=== PATIENT | female | born 1965 | race Caucasian/White ===

== ENCOUNTER 2016-10-03 06:00 | Day surgery (SDC) | payer BC ==
[2016-10-03] MEDS ORDERED: Lactated Ringers 1,000 ML IV SCH (06:30)
[2016-10-03 07:12] LABS: ANION GAP 7.5 MEQ/L (5-15); BLOOD UREA NITROGEN 6 mg/dL (9-20); CHLORIDE 108 mEq/L (98-107); Carbon Dioxide 29.9 mEq/L (21-32); Glucose 93 MG/DL (70-110); Potassium 4.5 mEq/L (3.5-5.1); SODIUM 141 mEq/L (136-145)
[2016-10-03] MEDS ORDERED: SUBLIMAZE 100 MCG/2 ML IV ONE (08:00)
[2016-10-03] MEDS ORDERED: Versed 2 MG/2 ML Injection IV ONE (08:00)
[2016-10-03] MEDS ORDERED: DIPRIVAN 200 MG/20 ML IV ONE ×2 (08:00)
[2016-10-03 08:59] VITALS: PULSE 60
--- NOTE | 2016-10-03 09:11 | OP ---
SURGERY DATE/TIME: 10/03/2016 0747 PREOPERATIVE DIAGNOSIS: Screening colonoscopy. POSTOPERATIVE DIAGNOSIS: Normal colon. PROCEDURE: Colonoscopy. SURGEON: Juan Dailey M.D. ANESTHESIA: MAC. ESTIMATED BLOOD LOSS: None. SPECIMENS: None. DESCRIPTION OF PROCEDURE: After informed written consent was obtained, the patient was taken to the endoscopy suite. She underwent monitored anesthesia and digital rectal exam showed normal sphincter tone and no internal lesions. The scope was inserted in the rectum and sequentially the entire colonic mucosa was traversed. The level of cecum was reached and verified with direct visualization of ileocecal valve. Upon withdrawal careful mucosal inspection revealed no obvious mucosal abnormalities. Prior to withdrawal retroflexion was within normal limits. The scope was removed and the patient was transferred to the recovery room in excellent condition.
[2016-10-03 09:30] VITALS: BP 117/77; O2SAT 100
== END 2016-10-03 09:25 | disposition home or self-care (01) ==
LOC: SDC 06:00
PROVIDERS: ATTEND Family Medicine
PROC: 0DJD8ZZ Inspection of Lower Intestinal Tract, Via Natural or Artificial Opening Endoscopic (ICD-10-PCS; principal; 2016-10-03)
DX: Z12.11 Encounter for screening for malignant neoplasm of colon (principal)
CPT/HCPCS: 00810; 36415; 80048; J2250; J2704; J3010

== ENCOUNTER 2021-01-27 12:24 | Emergency (ER) | payer BC, OTHER ==
[2021-01-27 12:44] VITALS: O2SAT 100
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
[2021-01-27 14:16] VITALS: BP 139/86; PULSE 76
== END 2021-01-27 14:16 | disposition home or self-care (01) ==
LOC: ED 12:24
DX: S16.1XXA Strain of muscle, fascia and tendon at neck level, initial encounter (principal); V43.52XA Car driver injured in collision with other type car in traffic accident, initial encounter; R51.9 Headache, unspecified
CPT/HCPCS: 70450; 72125; 99285

== ENCOUNTER 2021-02-17 12:05 | Emergency (ER) | payer BC, OTHER ==
[2021-02-17 12:15] VITALS: BP 160/85
[2021-02-17] MEDS ORDERED: solu-MEDROL 125 MG, Sterile H2O 10 ml 2 ML IM ONE ×2 (12:23)
[2021-02-17] MEDS ORDERED: Pepcid 20 MG PO ONE (12:23)
[2021-02-17] MEDS ORDERED: BENADRYL 12.5 MG/5 ML PO ONE (12:23)
[2021-02-17] MEDS ORDERED: DUONEB 0.5-3 MG/3 ml Neb IH ONE ×2 (12:23→12:40)
[2021-02-17] MEDS ORDERED: Pepcid 20 MG ONE (12:28)
[2021-02-17] MEDS ORDERED: solu-MEDROL ONE (12:28)
[2021-02-17] MEDS ORDERED: BENADRYL 12.5 MG/5 ML ONE (12:28)
[2021-02-17] MEDS ORDERED: Sterile H2O 10 ml IJ ONE (12:28)
[2021-02-17 12:57] VITALS: PULSE 75; O2SAT 97
--- NOTE | 2021-02-17 13:16 | ERPHSYRPT ---
- History of Present Illness Time Seen by Provider: 02/17/21 12:07 Source: patient Exam Limitations: no limitations Patient Subjective Stated Complaint: Allergic reaction Triage Nursing Assessment: Patient ambulated back to ED and transferred self to bed. Patient A+O X3. Patient's skin pink, warm and dry. Patient states she started last night with her throat feeling like it was closing and swelling. Patient states she feels shaky and weak. Patient states she has allergies to perservatives and artificial ingredients so unknown what she ate. Patient complains of chest pain / Physician History: 55 years old female with history of multiple allergies to artificial flavors and other ingredients presented in the ER with chief complaint of throat closing sensation waking her up from sleep this morning, took children's Benadryl unknown amount and after that she is feeling little better but still have some scratchiness in the throat with shakiness all over. Patient does have history of anxiety and takes Xanax as needed. Denies any difficulty breathing or swallowing. No tongue swelling. Reports minimal wheezing at times. Denies any chest pain or pressure. No obvious triggering allergen. Timing/Duration: today, constant, improved Severity: moderate Associated Symptoms: denies symptoms Allergies/Adverse Reactions: Penicillins Allergy (Severe, Verified 02/17/21 12:06) morphine Allergy (Verified 02/17/21 12:06) potassium sorbate Allergy (Verified 02/17/21 12:06) sulfamethoxazole [From Bactrim] Allergy (Verified 02/17/21 12:06) trimethoprim [From Bactrim] Allergy (Verified 02/17/21 12:06) Home Medications: Amiloride HCl [Midamor] 5 mg PO DAILY 10/02/16 [History] Dicyclomine HCl [Bentyl] 10 mg PO QID 10/03/16 [History] Hx Tetanus, Diphtheria Vaccination/Date Given: Yes (hysterecomy) Hx Influenza Vaccination/Date Given: Yes Hx Pneumococcal Vaccination/Date Given: No Immunizations Up to Date: Yes Travel Risk - International Travel Have you traveled outside of the country in past 3 weeks: No - Coronavirus Screening Are you exhibiting any of the following symptoms?: No Close contact with a COVID-19 positive Pt in past 14-21 Days: No - Vaccine Status Have you recieved a Covid-19 vaccination: No - Review of Systems Constitutional: No Symptoms Eyes: No Symptoms Ears, Nose, & Throat: Nose Congestion, Throat Swelling Respiratory: Wheezing Cardiac: No Symptoms Abdominal/Gastrointestinal: No Symptoms Genitourinary Symptoms: No Symptoms Musculoskeletal: No Symptoms Skin: No Symptoms Neurological: No Symptoms Psychological: Anxiety Endocrine: No Symptoms Hematologic/Lymphatic: No Symptoms Immunological/Allergic: No Symptoms - Past Medical History Pertinent Past Medical History: Yes Neurological History: No Pertinent History ENT History: No Pertinent History Cardiac History: Other Respiratory History: No Pertinent History Endocrine Medical History: No Pertinent History Musculoskeletal History: Arthritis GI Medical History: No Pertinent History History: Other Psycho-Social History: No Pertinent History Female Reproductive Disorders: No Pertinent History Other Medical History: RAPID HEART BEAT, "kidneys filter too much potassium" - Past Surgical History Past Surgical History: Yes Neuro Surgical History: No Pertinent History Cardiac: No Pertinent History Respiratory: No Pertinent History Gastrointestinal: No Pertinent History Genitourinary: No Pertinent History Musculoskeletal: No Pertinent History Female Surgical History: Hysterectomy - Social History Smoking Status: Never smoker Exposure to second hand smoke: No Drug Use: none Patient Lives Alone: No - Female History Hx Now: No - Nursing Vital Signs Nursing Vital Signs: Initial Vital Signs Temperature 97.2 F 02/17/21 12:07 Pulse Rate 99 H 02/17/21 12:07 Respiratory Rate 15 02/17/21 12:07 Blood Pressure 160/85 02/17/21 12:07 O2 Sat by Pulse Oximetry 100 02/17/21 12:07 Pain Scale Pain Intensity 5 - Physical Exam General Appearance: no apparent distress, alert, anxiety Eye Exam: PERRL/EOMI, eyes nml inspection Ears, Nose, Throat Exam: pharyngeal erythema (With some postnasal drip) Neck Exam: normal inspection, non-tender, supple, full range of motion Respiratory Exam: normal breath sounds, lungs clear Cardiovascular Exam: regular rate/rhythm, normal heart sounds Gastrointestinal/Abdomen Exam: soft, normal bowel sounds Back Exam: normal inspection Extremity Exam: normal inspection, normal range of motion Neurologic Exam: alert, oriented x 3, cooperative, No normal mood/affect (Anxious) Skin Exam: normal color SpO2 Interpretation: normal SpO2: 97 O2 Delivery: Room Air - Course EKG Interpreted by Me: RATE (75), Sinus Rhythm, NORMAL AXIS, NORMAL INTERVALS, Non-specific ST Changes (Nonspecific ST changes) Ordered Tests: Active Orders 24 hr Category Date Time Status Respiratory Nebulizer STAT RT 02/17/21 12:48 Completed Respiratory Therapy Assessment DAILY RT 02/17/21 12:48 Active Medication Summary Discontinued Medications Generic Name Dose Route Start Last Admin Trade Name Nasreen PRN Reason Stop Dose Admin Albuterol/Ipratropium 3 ml 02/17/21 12:23 02/17/21 12:44 Duoneb 0.5-3 Mg/3 Ml Neb IH 02/17/21 12:24 3 ml STAT ONE Administration Albuterol/Ipratropium Confirm 02/17/21 12:40 Duoneb 0.5-3 Mg/3 Ml Neb Administered 02/17/21 12:41 Dose 3 ml IH .STK-MED ONE Methylprednisolone Sodium 0 mg 02/17/21 12:23 02/17/21 12:31 Succinate 125 mg/ Sterile IM 02/17/21 12:24 125 mg Water 2 ml STAT ONE Administration Diphenhydramine HCl 25 mg 02/17/21 12:23 02/17/21 12:31 Benadryl 12.5 Mg/5 Ml PO 02/17/21 12:24 25 mg STAT ONE Administration Diphenhydramine HCl Confirm 02/17/21 12:28 Benadryl 12.5 Mg/5 Ml Administered 02/17/21 12:29 Dose 5 mg .ROUTE .STK-MED ONE Famotidine 40 mg 02/17/21 12:23 02/17/21 12:31 Pepcid 20 Mg PO 02/17/21 12:24 40 mg STAT ONE Administration Famotidine Confirm 02/17/21 12:28 Pepcid 20 Mg Administered 02/17/21 12:29 Dose 40 mg .ROUTE .STK-MED ONE Methylprednisolone Sodium Succinate Confirm 02/17/21 12:28 Solu-Medrol Administered 02/17/21 12:29 Dose 125 mg .ROUTE .STK-MED ONE Sterile Water Confirm 02/17/21 12:28 Sterile H2o 10 Ml Administered 02/17/21 12:29 Dose 10 ml IJ .STK-MED ONE - Progress Progress: improved Progress Note: 02/17/21 13:14 She is given Solu-Medrol, Benadryl, Pepcid and albuterol neb treatment, on reevaluation she is feeling much better. Does not have any difficulty breathing. No signs suggesting angioedema. I would continue with above meds to go home and will give her EpiPen to take as needed. Recommended outpatient follow-up. Counseled pt/family regarding: diagnosis, need for follow-up - Departure Departure Disposition: Home Clinical Impression: Allergic reaction Qualifiers: Encounter type: initial encounter Qualified Code(s): T78.40XA - Allergy, unspecified, initial encounter Condition: Stable Critical Care Time: No Referrals: ANOOP MORRIS NP [Primary Care Provider] - (Call for appointment early next week) Instructions: Adverse Drug Reactions, Adult (DC) Additional Instructions: Avoid any potential known allergens. Use EpiPen as needed. Continue with current medications. Follow-up with primary care for reevaluation. Return to ER if have difficulty breathing/swallowing/throat closing/choking sensation etc. Prescriptions: Diphenhydramine HCl 25 mg [Benadryl 25 mg Capsule] 25 mg PO Q4H PRN PRN #20 cap PRN Reason: Allergies Prednisone 20 mg [Deltasone 20 mg] 60 mg PO DAILY 5 Days #15 tablet Epinephrine [Epipen] 0.3 mg IM DIRECTIONS UNKNOWN 1 Days #0.3 ml Famotidine 20 mg [Pepcid 20 MG] 20 mg PO BID #14 tablet Albuterol 8 gm Mdi Hfa [Ventolin Hfa MDI] 8 gm IH Q4H #1 inh
== END 2021-02-17 13:24 | disposition home or self-care (01) ==
LOC: ED 12:05
DX: T78.40XA Allergy, unspecified, initial encounter (principal)
CPT/HCPCS: 94640; 96372; 99283; J2930; A9270-GY

== ENCOUNTER 2021-09-10 20:04 | Inpatient (IN) | payer BC ==
[2021-09-10] MEDS ORDERED: Sodium Chloride 0.9% 1000 ML 1,000 ML IV STA (20:17)
--- NOTE | 2021-09-10 20:17 | ERPHSYRPT ---
- History of Present Illness Time Seen by Provider: 09/10/21 20:12 Source: patient, family Exam Limitations: no limitations Physician History: This is a 55 y/o white female patient of ADALGISA Larsen who presents from home with complaint of sudden onset of generalized weakness and difficultly thinking. pt denies new meds, denies cp, denies sob and denies vomiting. pt states she is having diarrhea. she has a h/o arthritis and anxiety. she also has a h/o problems with low potassium. she has not had fevers, or cough. Timing/Duration: today, hour(s) (one hour ago) Severity: moderate Associated Symptoms: weakness, No nausea, No vomiting, No shortness of breath, No cough, No chest pain Allergies/Adverse Reactions: Penicillins Allergy (Severe, Verified 09/10/21 20:23) morphine Allergy (Verified 09/10/21 20:23) potassium sorbate Allergy (Verified 09/10/21 20:23) sulfamethoxazole [From Bactrim] Allergy (Verified 09/10/21 20:23) trimethoprim [From Bactrim] Allergy (Verified 09/10/21 20:23) Home Medications: Dicyclomine HCl [Bentyl] 10 mg PO TID 10/03/16 [History] ALPRAZolam 1 MG [Xanax 1 mg] 1 mg PO TIDPRN 09/10/21 [History] Propranolol HCl [Inderal Xl] 80 mg PO DAILY 09/10/21 [History] Hx Tetanus, Diphtheria Vaccination/Date Given: Yes (hysterecomy) Hx Influenza Vaccination/Date Given: Yes Hx Pneumococcal Vaccination/Date Given: No Travel Risk - International Travel Have you traveled outside of the country in past 3 weeks: No - Coronavirus Screening Are you exhibiting any of the following symptoms?: No Close contact with a COVID-19 positive Pt in past 14-21 Days: No - Vaccine Status Have you recieved a Covid-19 vaccination: No - Review of Systems Constitutional: Weakness Eyes: No Symptoms Ears, Nose, & Throat: No Symptoms Respiratory: No Symptoms Cardiac: No Symptoms Abdominal/Gastrointestinal: Diarrhea, No Abdominal Pain, No Nausea, No Vomiting, No Constipation Genitourinary Symptoms: No Symptoms Musculoskeletal: No Symptoms Skin: No Symptoms Neurological: No Symptoms Psychological: No Symptoms Endocrine: No Symptoms Hematologic/Lymphatic: No Symptoms Immunological/Allergic: No Symptoms All Other Systems: Reviewed and Negative - Past Medical History Pertinent Past Medical History: Yes Neurological History: No Pertinent History ENT History: No Pertinent History Cardiac History: Other Respiratory History: No Pertinent History Endocrine Medical History: No Pertinent History Musculoskeletal History: Arthritis GI Medical History: No Pertinent History History: Other Psycho-Social History: No Pertinent History Female Reproductive Disorders: No Pertinent History Other Medical History: RAPID HEART BEAT, "kidneys filter too much potassium" - Past Surgical History Past Surgical History: Yes Neuro Surgical History: No Pertinent History Cardiac: No Pertinent History Respiratory: No Pertinent History Gastrointestinal: No Pertinent History Genitourinary: No Pertinent History Musculoskeletal: No Pertinent History Female Surgical History: Hysterectomy - Social History Smoking Status: Never smoker Exposure to second hand smoke: No Drug Use: none Patient Lives Alone: No - Nursing Vital Signs Nursing Vital Signs: Initial Vital Signs Temperature 97.1 F 09/10/21 20:10 Pulse Rate 58 L 09/10/21 20:10 Respiratory Rate 16 09/10/21 20:10 Blood Pressure 158/68 09/10/21 20:10 O2 Sat by Pulse Oximetry 100 09/10/21 20:10 Pain Scale Pain Intensity 0 - Physical Exam General Appearance: no apparent distress, alert, anxiety Eye Exam: PERRL/EOMI, eyes nml inspection Ears, Nose, Throat Exam: normal ENT inspection, moist mucous membranes Neck Exam: normal inspection, non-tender, supple, full range of motion Respiratory Exam: normal breath sounds, lungs clear, airway intact, No chest tenderness, No respiratory distress Cardiovascular Exam: regular rate/rhythm, normal heart sounds, normal peripheral pulses Gastrointestinal/Abdomen Exam: soft, normal bowel sounds, No tenderness Pelvic Exam: not done Rectal Exam: not done Back Exam: normal inspection, normal range of motion, No CVA tenderness, No vertebral tenderness Extremity Exam: normal inspection, normal range of motion, pelvis stable Neurologic Exam: alert, oriented x 3, cooperative, information security officer II-XII nml as tested, no rmal mood/affect, nml cerebellar function, nml station & gait, sensation nml Skin Exam: normal color, warm, dry Lymphatic Exam: No adenopathy SpO2 Interpretation: normal O2 Delivery: Room Air - Course Nursing assessment & vital signs reviewed: Yes EKG Interpreted by Me: RATE (58), Sinus Rhythm, NORMAL AXIS, NORMAL INTERVALS (prolonged pr interval. no acute ischemia. no change from ekg dated 02/17/21), NORMAL QRS, NORMAL ST-T, Other Ordered Tests: Active Orders 24 hr Category Date Time Status EKG-ER Only STAT Care 09/10/21 20:17 Active IV Insertion STAT Care 09/10/21 20:17 Active NPO (ED) STAT Care 09/10/21 20:17 Active POCT Glucose Check STAT Care 09/10/21 20:17 Active Pulse Oximetry (ED) STAT Care 09/10/21 20:17 Active HEAD WITHOUT CONTRAST [CT] Stat Exams 09/10/21 20:17 Taken CBC W DIFF Stat Lab 09/10/21 20:38 Completed CMP Stat Lab 09/10/21 20:38 Completed Lactic Acid Stat Lab 09/10/21 20:20 Completed MAGNESIUM Stat Lab 09/10/21 20:38 Completed NT PRO BNP Stat Lab 09/10/21 20:38 Completed POCT GLUCOSE Stat Lab 09/10/21 20:28 Completed POTASSIUM, URINE RANDOM Stat Lab 09/10/21 21:34 Completed Sodium, Urine Stat Lab 09/10/21 21:34 Completed T4 (Thyroxine) Stat Lab 09/10/21 20:38 Completed TROPONIN Q3H Lab 09/10/21 20:38 Completed TROPONIN Q3H Lab 09/10/21 23:30 Ordered TROPONIN Q3H Lab 09/11/21 02:30 Ordered TROPONIN Q3H Lab 09/11/21 05:30 Ordered TROPONIN Q3H Lab 09/11/21 08:30 Ordered TSH [TSH, 3RD Generation] Stat Lab 09/10/21 20:38 Completed Transfer Order Routine Transfer 09/10/21 Ordered Medication Summary Discontinued Medications Generic Name Dose Route Start Last Admin Trade Name Freq PRN Reason Stop Dose Admin Sodium Chloride 1,000 mls @ 999 mls/hr 09/10/21 20:17 09/10/21 20:27 Sodium Chloride 0.9% 1000 Ml IV 09/10/21 21:17 999 mls/hr .Q1H1M STA Administration Sodium Chloride Confirm 09/10/21 20:23 Sodium Chloride 0.9% 1000 Ml Administered 09/10/21 20:24 Dose 1,000 mls @ ud .ROUTE .STK-MED ONE Potassium Chloride 20 meq 09/10/21 21:26 09/10/21 21:30 Potassium Chloride 10 Meq Tablet PO 09/10/21 21:27 20 meq STAT ONE Administration Potassium Chloride Confirm 09/10/21 21:29 Potassium Chloride 10 Meq Tablet Administered 09/10/21 21:30 Dose 20 meq PO .STK-MED ONE Lab/Rad Data: Laboratory Result Diagrams 09/10/21 20:38 09/10/21 20:38 Laboratory Results 09/10/21 09/10/21 09/10/21 Range/Units 21:34 21:34 21:21 WBC (4.0-10.5) K/mm3 RBC (4.1-5.4) M/mm3 Hgb (12.0-16.0) gm/dl Hct (35-47) % MCV (78-100) fl MCH (26-32) pg MCHC (32-36) g/dl RDW (11.5-14.0) % Plt Count (150-450) K/mm3 MPV (7.5-11.0) fl Gran % (36.0-66.0) % Eos # (Auto) (0-0.5) Absolute Lymphs (auto) (1.0-4.6) Absolute Monos (auto) (0.0-1.3) Lymphocytes % (24.0-44.0) % Monocytes % (0.0-12.0) % Eosinophils % (0.00-5.0) % Basophils % (0.0-0.4) % Absolute Granulocytes (1.4-6.9) Basophils # (0-0.4) Sodium (137-145) mmol/L Potassium (3.5-5.1) mmol/L Chloride (98-107) mmol/L Carbon Dioxide (22-30) mmol/L Anion Gap (5-15) MEQ/L BUN (7-17) mg/dL Creatinine (0.52-1.04) mg/dL Estimated GFR ML/MIN Glucose (74-106) mg/dL POC Glucometer (74 to 106) mg/dL Lactic Acid (0.4-2.0) Calcium (8.4-10.2) mg/dL Magnesium (1.6-2.3) mg/dL Total Bilirubin (0.2-1.3) mg/dL AST (14-36) U/L ALT (0-35) U/L Alkaline Phosphatase (38-126) U/L Troponin I (0.000-0.034) ng/mL NT-Pro-B Natriuret Pep (0-900) pg/mL Serum Total Protein (6.3-8.2) g/dL Albumin (3.5-5.0) g/dL Thyroxine (T4) (5.53-10.96) ug/dL TSH 3rd Generation (0.47-4.68) mIU/L Urinalys Dipstick Clnc MAIN LAB Urine Color YELLOW (YELLOW) Urine Appearance CLEAR (CLEAR) Urine pH 6.0 (5-6) Ur Specific [place] 1.020 (1.005-1.025) POC Urine Protein Conf NEGATIVE (Negative) Urine Ketones NEGATIVE (NEGATIVE) Urine Nitrite NEGATIVE (NEGATIVE) Urine Bilirubin NEGATIVE (NEGATIVE) Urine Urobilinogen 0.2 (0-1) mg/dL Urine Leukocytes TRACE (NEGATIVE) Urine WBC (Auto) 3-5 (0-5) /HPF Urine RBC (Auto) NONE (0-2) /HPF U Epithel Cells (Auto) RARE (FEW) /HPF Urine Bacteria (Auto) NONE (NEGATIVE) /HPF Urine RBC NEGATIVE (0-5) Soham/ul Urine Mucus (Auto) MODERATE (NEGATIVE) /HPF Ur Culture Indicated? NO Urine Sodium 27 L (30-90) mmol/L Urine Potassium 41.4 mmol/L Urine Glucose NEGATIVE (NEGATIVE) mg/dL 09/10/21 09/10/21 09/10/21 Range/Units 20:38 20:38 20:38 WBC (4.0-10.5) K/mm3 RBC (4.1-5.4) M/mm3 Hgb (12.0-16.0) gm/dl Hct (35-47) % MCV (78-100) fl MCH (26-32) pg MCHC (32-36) g/dl RDW (11.5-14.0) % Plt Count (150-450) K/mm3 MPV (7.5-11.0) fl Gran % (36.0-66.0) % Eos # (Auto) (0-0.5) Absolute Lymphs (auto) (1.0-4.6) Absolute Monos (auto) (0.0-1.3) Lymphocytes % (24.0-44.0) % Monocytes % (0.0-12.0) % Eosinophils % (0.00-5.0) % Basophils % (0.0-0.4) % Absolute Granulocytes (1.4-6.9) Basophils # (0-0.4) Sodium (137-145) mmol/L Potassium (3.5-5.1) mmol/L Chloride (98-107) mmol/L Carbon Dioxide (22-30) mmol/L Anion Gap (5-15) MEQ/L BUN (7-17) mg/dL Creatinine (0.52-1.04) mg/dL Estimated GFR ML/MIN Glucose (74-106) mg/dL POC Glucometer (74 to 106) mg/dL Lactic Acid (0.4-2.0) Calcium (8.4-10.2) mg/dL Magnesium (1.6-2.3) mg/dL Total Bilirubin (0.2-1.3) mg/dL AST (14-36) U/L ALT (0-35) U/L Alkaline Phosphatase (38-126) U/L Troponin I < 0.012 (0.000-0.034) ng/mL NT-Pro-B Natriuret Pep (0-900) pg/mL Serum Total Protein (6.3-8.2) g/dL Albumin (3.5-5.0) g/dL Thyroxine (T4) 6.20 (5.53-10.96) ug/dL TSH 3rd Generation 1.860 (0.47-4.68) mIU/L Urinalys Dipstick Clnc Urine Color (YELLOW) Urine Appearance (CLEAR) Urine pH (5-6) Ur Specific [place] (1.005-1.025) POC Urine Protein Conf (Negative) Urine Ketones (NEGATIVE) Urine Nitrite (NEGATIVE) Urine Bilirubin (NEGATIVE) Urine Urobilinogen (0-1) mg/dL Urine Leukocytes (NEGATIVE) Urine WBC (Auto) (0-5) /HPF Urine RBC (Auto) (0-2) /HPF U Epithel Cells (Auto) (FEW) /HPF Urine Bacteria (Auto) (NEGATIVE) /HPF Urine RBC (0-5) Soham/ul Urine Mucus (Auto) (NEGATIVE) /HPF Ur Culture Indicated? Urine Sodium (30-90) mmol/L Urine Potassium mmol/L Urine Glucose (NEGATIVE) mg/dL 09/10/21 09/10/21 09/10/21 Range/Units 20:38 20:38 20:28 WBC 9.6 (4.0-10.5) K/mm3 RBC 3.61 L (4.1-5.4) M/mm3 Hgb 11.6 L (12.0-16.0) gm/dl Hct 33.6 L (35-47) % MCV 93.1 (78-100) fl MCH 32.1 H (26-32) pg MCHC 34.5 (32-36) g/dl RDW 11.5 (11.5-14.0) % Plt Count 261 (150-450) K/mm3 MPV 9.2 (7.5-11.0) fl Gran % 52.1 (36.0-66.0) % Eos # (Auto) 0.07 (0-0.5) Absolute Lymphs (auto) 3.50 (1.0-4.6) Absolute Monos (auto) 0.98 (0.0-1.3) Lymphocytes % 36.6 (24.0-44.0) % Monocytes % 10.3 (0.0-12.0) % Eosinophils % 0.7 (0.00-5.0) % Basophils % 0.3 (0.0-0.4) % Absolute Granulocytes 4.97 (1.4-6.9) Basophils # 0.03 (0-0.4) Sodium 122 L (137-145) mmol/L Potassium 3.1 L (3.5-5.1) mmol/L Chloride 88 L (98-107) mmol/L Carbon Dioxide 24 (22-30) mmol/L Anion Gap 12.5 (5-15) MEQ/L BUN 9 (7-17) mg/dL Creatinine 0.64 (0.52-1.04) mg/dL Estimated GFR > 60.0 ML/MIN Glucose 152 H (74-106) mg/dL POC Glucometer 178 H (74 to 106) mg/dL Lactic Acid (0.4-2.0) Calcium 8.6 (8.4-10.2) mg/dL Magnesium 1.8 (1.6-2.3) mg/dL Total Bilirubin 0.90 (0.2-1.3) mg/dL AST 53 H (14-36) U/L ALT 49 H (0-35) U/L Alkaline Phosphatase 53 (38-126) U/L Troponin I (0.000-0.034) ng/mL NT-Pro-B Natriuret Pep 115 (0-900) pg/mL Serum Total Protein 6.1 L (6.3-8.2) g/dL Albumin 3.9 (3.5-5.0) g/dL Thyroxine (T4) (5.53-10.96) ug/dL TSH 3rd Generation (0.47-4.68) mIU/L Urinalys Dipstick Clnc Urine Color (YELLOW) Urine Appearance (CLEAR) Urine pH (5-6) Ur Specific [place] (1.005-1.025) POC Urine Protein Conf (Negative) Urine Ketones (NEGATIVE) Urine Nitrite (NEGATIVE) Urine Bilirubin (NEGATIVE) Urine Urobilinogen (0-1) mg/dL Urine Leukocytes (NEGATIVE) Urine WBC (Auto) (0-5) /HPF Urine RBC (Auto) (0-2) /HPF U Epithel Cells (Auto) (FEW) /HPF Urine Bacteria (Auto) (NEGATIVE) /HPF Urine RBC (0-5) Soham/ul Urine Mucus (Auto) (NEGATIVE) /HPF Ur Culture Indicated? Urine Sodium (30-90) mmol/L Urine Potassium mmol/L Urine Glucose (NEGATIVE) mg/dL 09/10/21 Range/Units 20:20 WBC (4.0-10.5) K/mm3 RBC (4.1-5.4) M/mm3 Hgb (12.0-16.0) gm/dl Hct (35-47) % MCV (78-100) fl MCH (26-32) pg MCHC (32-36) g/dl RDW (11.5-14.0) % Plt Count (150-450) K/mm3 MPV (7.5-11.0) fl Gran % (36.0-66.0) % Eos # (Auto) (0-0.5) Absolute Lymphs (auto) (1.0-4.6) Absolute Monos (auto) (0.0-1.3) Lymphocytes % (24.0-44.0) % Monocytes % (0.0-12.0) % Eosinophils % (0.00-5.0) % Basophils % (0.0-0.4) % Absolute Granulocytes (1.4-6.9) Basophils # (0-0.4) Sodium (137-145) mmol/L Potassium (3.5-5.1) mmol/L Chloride (98-107) mmol/L Carbon Dioxide (22-30) mmol/L Anion Gap (5-15) MEQ/L BUN (7-17) mg/dL Creatinine (0.52-1.04) mg/dL Estimated GFR ML/MIN Glucose (74-106) mg/dL POC Glucometer (74 to 106) mg/dL Lactic Acid 0.9 (0.4-2.0) Calcium (8.4-10.2) mg/dL Magnesium (1.6-2.3) mg/dL Total Bilirubin (0.2-1.3) mg/dL AST (14-36) U/L ALT (0-35) U/L Alkaline Phosphatase (38-126) U/L Troponin I (0.000-0.034) ng/mL NT-Pro-B Natriuret Pep (0-900) pg/mL Serum Total Protein (6.3-8.2) g/dL Albumin (3.5-5.0) g/dL Thyroxine (T4) (5.53-10.96) ug/dL TSH 3rd Generation (0.47-4.68) mIU/L Urinalys Dipstick Clnc Urine Color (YELLOW) Urine Appearance (CLEAR) Urine pH (5-6) Ur Specific [place] (1.005-1.025) POC Urine Protein Conf (Negative) Urine Ketones (NEGATIVE) Urine Nitrite (NEGATIVE) Urine Bilirubin (NEGATIVE) Urine Urobilinogen (0-1) mg/dL Urine Leukocytes (NEGATIVE) Urine WBC (Auto) (0-5) /HPF Urine RBC (Auto) (0-2) /HPF U Epithel Cells (Auto) (FEW) /HPF Urine Bacteria (Auto) (NEGATIVE) /HPF Urine RBC (0-5) Soham/ul Urine Mucus (Auto) (NEGATIVE) /HPF Ur Culture Indicated? Urine Sodium (30-90) mmol/L Urine Potassium mmol/L Urine Glucose (NEGATIVE) mg/dL - Progress Progress: improved Progress Note: 09/10/21 20:34 additional hx provided by pt. she states she has been off her propranolol for a few days and restarted this am. in addition, she felt something stuck in her throat this afternoon after working in the yard. unable to have relief from the sensation and felt anxious so she took a xanax. both medications make her tired. 09/10/21 21:54 medical decision making: pt has both hyponatremia and hypokalemia. pt will be admitted and given iv ns for now and repeat labs in am. spoke with dr. richardson. only 0.9% ns for now. she will follow up on am labs. Discussed with : Fr[place] Counseled pt/family regarding: lab results, diagnosis, need for follow-up, rad results - Departure Departure Disposition: In-patient Admission Clinical Impression: Hyponatremia, Hypokalemia, Weakness, Confusion Condition: Stable Critical Care Time: No Referrals: ANOOP LARSEN, [employer] [Primary Care Provider] - Follow up/PCP as directed
[2021-09-10] MEDS ORDERED: Sodium Chloride 0.9% 1000 ML 1,000 ML ONE (20:23)
[2021-09-10 20:46] LABS: Absolute Neutrophil Ct (ANC) 4.97 (1.4-6.9); Basophil (Absolute #) 0.03 (0-0.4); Eosinophil % 0.7 % (0.00-5.0); Eosinophil (Absolute #) 0.07 (0-0.5); Hematocrit 33.6 % (35-47); Hemoglobin 11.6 gm/dl (12.0-16.0); Lymphocytes % 36.6 % (24.0-44.0); Mean Cell Volume 93.1 fl (78-100); Mean Corpuscular Hemoglobin 32.1 pg (26-32); Mean Corpuscular Hgb Concent. 34.5 g/dl (32-36); Mean Platelet Volume 9.2 fl (7.5-11.0); Monocyte (Absolute #) 0.98 (0.0-1.3); Monocytes % 10.3 % (0.0-12.0); Neutrophil % 52.1 % (36.0-66.0); Platelet Count 261 K/mm3 (150-450); Red Blood Count 3.61 M/mm3 (4.1-5.4); Red Cell Distribution Width 11.5 % (11.5-14.0); White Blood Count 9.6 K/mm3 (4.0-10.5)
[2021-09-10 21:01] LABS: ALBUMIN 3.9 g/dL (3.5-5.0); ALKALINE PHOSPHATASE 53 U/L (38-126); ANION GAP 12.5 MEQ/L (5-15); BLOOD UREA NITROGEN 9 mg/dL (7-17); CHLORIDE 88 mmol/L (98-107); Calcium 8.6 mg/dL (8.4-10.2); Carbon Dioxide 24 mmol/L (22-30); Creatinine 1 0.64 mg/dL (0.52-1.04); EST GLOMERULAR FILTRATION RATE > 60.0 ML/MIN; Glucose 152 mg/dL (74-106); MAGNESIUM 1.8 mg/dL (1.6-2.3); NT PRO BNP 115 pg/mL (0-900); Potassium 3.1 mmol/L (3.5-5.1); SGOT/AST 53 U/L (14-36); SGPT/ALT 49 U/L (0-35); SODIUM 122 mmol/L (137-145); Total Protein 6.1 g/dL (6.3-8.2)
[2021-09-10] MEDS ORDERED: Klor Con 10 MEQ PO ONE ×2 (21:26→21:29)
[2021-09-10 21:43] LABS: Epithelial Cells RARE /HPF (FEW); Mucus MODERATE /HPF (NEGATIVE)
[2021-09-10 21:45] LABS: Appearance CLEAR (CLEAR); Bilirubin NEGATIVE (NEGATIVE); Dipstick done @ ? MAIN LAB; Glucose NEGATIVE (NEGATIVE); Ketones NEGATIVE (NEGATIVE); Nitrite NEGATIVE (NEGATIVE); Protein,Urine Dip NEGATIVE (Negative); RBC NEGATIVE Ery/ul (0-5); Urobilinogen 0.2 mg/dL (0-1)
[2021-09-10 21:46] LABS: Urine Cultured Indicated? NO
[2021-09-10 22:42] LABS: INFLUENZA A NEGATIVE (NEGATIVE); INFLUENZA B NEGATIVE (NEGATIVE); RESPIRATORY SYNCTIAL VIRUS NEGATIVE (Negative); SARS-CoV-2 Xpert Express NEGATIVE (NEGATIVE)
[2021-09-10] MEDS ORDERED: ZOFRAN ODT 4 MG PO ONE (23:32)
[2021-09-10] MEDS ORDERED: TYLENOL SUSPENSION 160 MG/5 ML PO ONE (23:33)
[2021-09-10] MEDS ORDERED: TYLENOL SUSPENSION 160 MG/5 ML ONE (23:39)
[2021-09-10] MEDS ORDERED: ZOFRAN ODT 4 MG ONE (23:39)
[2021-09-10] MEDS ORDERED: Zofran 4 MG/2 ML VIAL IV PRN (23:51)
[2021-09-11] MEDS: Sodium Chloride 0.9% 1000 ML 1,000 ML IV SCH ×2 (00:33→08:23)
[2021-09-11] MEDS ORDERED: xanAX 0.5 MG ONE (02:23)
[2021-09-11] MEDS: xanAX 0.5 MG PO SCH ×2 (02:25→21:45)
[2021-09-11 03:13] LABS: Absolute Neutrophil Ct (ANC) 4.14 (1.4-6.9); Basophil (Absolute #) 0.02 (0-0.4); Eosinophil % 0.3 % (0.00-5.0); Eosinophil (Absolute #) 0.02 (0-0.5); Hematocrit 32.1 % (35-47); Hemoglobin 11.2 gm/dl (12.0-16.0); Mean Cell Volume 92.5 fl (78-100); Mean Corpuscular Hemoglobin 32.3 pg (26-32); Mean Corpuscular Hgb Concent. 34.9 g/dl (32-36); Mean Platelet Volume 9.1 fl (7.5-11.0); Monocyte (Absolute #) 0.65 (0.0-1.3); Neutrophil % 63.4 % (36.0-66.0); Platelet Count 220 K/mm3 (150-450); Red Blood Count 3.47 M/mm3 (4.1-5.4); Red Cell Distribution Width 11.5 % (11.5-14.0); White Blood Count 6.5 K/mm3 (4.0-10.5)
[2021-09-11 03:45] LABS: ALBUMIN 3.6 g/dL (3.5-5.0); ALKALINE PHOSPHATASE 51 U/L (38-126); BLOOD UREA NITROGEN 7 mg/dL (7-17); CHLORIDE 92 mmol/L (98-107); Calcium 7.9 mg/dL (8.4-10.2); Carbon Dioxide 24 mmol/L (22-30); Creatinine 1 0.51 mg/dL (0.52-1.04); EST GLOMERULAR FILTRATION RATE > 60.0 ML/MIN; Glucose 116 mg/dL (74-106); Potassium 4.3 mmol/L (3.5-5.1); SGOT/AST 49 U/L (14-36); SGPT/ALT 51 U/L (0-35); SODIUM 122 mmol/L (137-145); Total Protein 5.7 g/dL (6.3-8.2)
--- NOTE | 2021-09-11 08:41 | XRAY ---
Indication: Confusion. Multiple contiguous axial images obtained through the head without contrast. Comparison: August 25, 2021. Normal appearing brain parenchyma, ventricles, and bony calvarium. Visualized paranasal sinuses and mastoid air cells are clear. Impression: Continued normal CT head without contrast exam. Comment: Preliminary interpretation made by [facility]. No critical discrepancy.
--- NOTE | 2021-09-11 09:07 | PCM.HP ---
History of Present Illness - Chief Complaint Chief Complaint: electrolyte imbalance History of Present Illness: is a 55 year old female who presented to the ER complaining of weakness and fatigue, found to have low potassium and low sodium, she denies taking a thiazide, has a history of low potassium and sees Dr Painter. - Review of Systems Constitutional: No Fever, No Chills Respiratory: No Cough, No Short Of Breath Cardiac: No Chest Pain, No Edema, No Syncope Abdominal/Gastrointestinal: No Abdominal Pain, No Nausea, No Vomiting, No Diarrhea Genitourinary Symptoms: No Dysuria All Other Systems: Reviewed and Negative Medications & Allergies Home Medications: Home Medication List Dicyclomine HCl [Bentyl] 10 mg PO TID 10/03/16 [History Confirmed 09/10/21] Diphenhydramine HCl 25 mg [Benadryl 25 mg Capsule] 25 mg PO Q4H PRN PRN #20 cap 02/17/21 [Rx Confirmed 09/10/21] EPINEPHrine [Epipen] 0.3 mg IM DIRECTIONS UNKNOWN 1 Days #0.3 ml 02/17/21 [Rx Confirmed 09/10/21] Famotidine 20 mg [Pepcid 20 MG] 20 mg PO BID #14 tablet 02/17/21 [Rx Confirmed 09/10/21] ALPRAZolam 1 MG [Xanax 1 mg] 1 mg PO TIDPRN 09/10/21 [History Confirmed 09/10/21] Propranolol HCl [Inderal Xl] 80 mg PO DAILY 09/10/21 [History Confirmed 09/10/21] Allergies/Adverse Reactions: Allergies Allergy/AdvReac Type Severity Reaction Status Date / Time Penicillins Allergy Severe Verified 09/10/21 20:23 morphine Allergy Verified 09/10/21 20:23 potassium sorbate Allergy Verified 09/10/21 20:23 sulfamethoxazole Allergy Verified 09/10/21 20:23 [From Bactrim] trimethoprim [From Bactrim] Allergy Verified 09/10/21 20:23 - Past Medical History Past Medical History: Yes Neurological History: Migraines ENT History: No Pertinent History Cardiac History: Other Respiratory History: No Pertinent History Endocrine Medical History: No Pertinent History Musculoskelatal History: Arthritis GI Medical History: No Pertinent History History: Other Pyscho-Social History: Anxiety Reproductive Disorders: No Pertinent History Comment: RAPID HEART BEAT, "kidneys filter too much potassium". nodule on thyroid - Female History Are you now?: No - Past Surgical History Past Surgical History: Yes Neuro Surgical History: No Pertinent History Cardiac History: No Pertinent History Respiratory Surgery: No Pertinent History GI Surgical History: No Pertinent History Genitourinary Surgical Hx: No Pertinent History Musculskeletal Surgical Hx: No Pertinent History Female Surgical History: Hysterectomy - Social History Smoking Status: Never smoker Exposure to second hand smoke: No Alcohol: None Drug Use: none - Physical Exam Vital Signs: Vital Signs - 24 hr Temp Pulse Resp BP Pulse Ox 09/11/21 08:00 97.5 F 58 L 19 102/53 98 09/11/21 04:15 20 09/11/21 03:40 98.4 F 61 20 126/69 98 09/11/21 00:10 98.2 F 59 L 18 126/75 97 09/10/21 23:51 97 09/10/21 22:04 54 L 13 127/81 100 09/10/21 21:15 60 16 148/80 100 09/10/21 20:36 97 09/10/21 20:10 97.1 F 58 L 16 158/68 100 General Appearance: no apparent distress, alert Neurologic Exam: alert, oriented x 3, cooperative, normal mood/affect, nml cerebellar function, nml station & gait, sensation nml, No motor deficits Respiratory Exam: normal breath sounds, lungs clear, No respiratory distress Cardiovascular Exam: regular rate/rhythm, normal heart sounds, normal peripheral pulses Gastrointestinal/Abdomen Exam: soft, normal bowel sounds, No tenderness, No mass Extremity Exam: normal inspection, normal range of motion, pelvis stable Skin Exam: normal color, warm, dry, No rash Results - Labs Lab/Micro Results: Lab Results-Last 24 Hours 09/10/21 09/10/21 09/10/21 Range/Units 20:20 20:28 20:38 WBC 9.6 (4.0-10.5) K/mm3 RBC 3.61 L (4.1-5.4) M/mm3 Hgb 11.6 L (12.0-16.0) gm/dl Hct 33.6 L (35-47) % MCV 93.1 (78-100) fl MCH 32.1 H (26-32) pg MCHC 34.5 (32-36) g/dl RDW 11.5 (11.5-14.0) % Plt Count 261 (150-450) K/mm3 MPV 9.2 (7.5-11.0) fl Gran % 52.1 (36.0-66.0) % Eos # (Auto) 0.07 (0-0.5) Absolute Lymphs (auto) 3.50 (1.0-4.6) Absolute Monos (auto) 0.98 (0.0-1.3) Lymphocytes % 36.6 (24.0-44.0) % Monocytes % 10.3 (0.0-12.0) % Eosinophils % 0.7 (0.00-5.0) % Basophils % 0.3 (0.0-0.4) % Absolute Granulocytes 4.97 (1.4-6.9) Basophils # 0.03 (0-0.4) Sodium (137-145) mmol/L Potassium (3.5-5.1) mmol/L Chloride (98-107) mmol/L Carbon Dioxide (22-30) mmol/L Anion Gap (5-15) MEQ/L BUN (7-17) mg/dL Creatinine (0.52-1.04) mg/dL Estimated GFR ML/MIN Glucose (74-106) mg/dL POC Glucometer 178 H (74 to 106) mg/dL Lactic Acid 0.9 (0.4-2.0) Calcium (8.4-10.2) mg/dL Magnesium (1.6-2.3) mg/dL Total Bilirubin (0.2-1.3) mg/dL AST (14-36) U/L ALT (0-35) U/L Alkaline Phosphatase (38-126) U/L Troponin I (0.000-0.034) ng/mL NT-Pro-B Natriuret Pep (0-900) pg/mL Serum Total Protein (6.3-8.2) g/dL Albumin (3.5-5.0) g/dL Thyroxine (T4) (5.53-10.96) ug/dL TSH 3rd Generation (0.47-4.68) mIU/L Urinalys Dipstick Clnc Urine Color (YELLOW) Urine Appearance (CLEAR) Urine pH (5-6) Ur Specific [place] (1.005-1.025) POC Urine Protein Conf (Negative) Urine Ketones (NEGATIVE) Urine Nitrite (NEGATIVE) Urine Bilirubin (NEGATIVE) Urine Urobilinogen (0-1) mg/dL Urine Leukocytes (NEGATIVE) Urine WBC (Auto) (0-5) /HPF Urine RBC (Auto) (0-2) /HPF U Epithel Cells (Auto) (FEW) /HPF Urine Bacteria (Auto) (NEGATIVE) /HPF Urine RBC (0-5) Soham/ul Urine Mucus (Auto) (NEGATIVE) /HPF Ur Culture Indicated? Urine Sodium (30-90) mmol/L Urine Potassium mmol/L Urine Glucose (NEGATIVE) mg/dL Influenza Type A Ag (NEGATIVE) Influenza Type B Ag (NEGATIVE) RSV (PCR) (Negative) SARS-CoV-2 (PCR) (NEGATIVE) 09/10/21 09/10/21 09/10/21 Range/Units 20:38 20:38 20:38 WBC (4.0-10.5) K/mm3 RBC (4.1-5.4) M/mm3 Hgb (12.0-16.0) gm/dl Hct (35-47) % MCV (78-100) fl MCH (26-32) pg MCHC (32-36) g/dl RDW (11.5-14.0) % Plt Count (150-450) K/mm3 MPV (7.5-11.0) fl Gran % (36.0-66.0) % Eos # (Auto) (0-0.5) Absolute Lymphs (auto) (1.0-4.6) Absolute Monos (auto) (0.0-1.3) Lymphocytes % (24.0-44.0) % Monocytes % (0.0-12.0) % Eosinophils % (0.00-5.0) % Basophils % (0.0-0.4) % Absolute Granulocytes (1.4-6.9) Basophils # (0-0.4) Sodium 122 L (137-145) mmol/L Potassium 3.1 L (3.5-5.1) mmol/L Chloride 88 L (98-107) mmol/L Carbon Dioxide 24 (22-30) mmol/L Anion Gap 12.5 (5-15) MEQ/L BUN 9 (7-17) mg/dL Creatinine 0.64 (0.52-1.04) mg/dL Estimated GFR > 60.0 ML/MIN Glucose 152 H (74-106) mg/dL POC Glucometer (74 to 106) mg/dL Lactic Acid (0.4-2.0) Calcium 8.6 (8.4-10.2) mg/dL Magnesium 1.8 (1.6-2.3) mg/dL Total Bilirubin 0.90 (0.2-1.3) mg/dL AST 53 H (14-36) U/L ALT 49 H (0-35) U/L Alkaline Phosphatase 53 (38-126) U/L Troponin I < 0.012 (0.000-0.034) ng/mL NT-Pro-B Natriuret Pep 115 (0-900) pg/mL Serum Total Protein 6.1 L (6.3-8.2) g/dL Albumin 3.9 (3.5-5.0) g/dL Thyroxine (T4) (5.53-10.96) ug/dL TSH 3rd Generation 1.860 (0.47-4.68) mIU/L Urinalys Dipstick Clnc Urine Color (YELLOW) Urine Appearance (CLEAR) Urine pH (5-6) Ur Specific [place] (1.005-1.025) POC Urine Protein Conf (Negative) Urine Ketones (NEGATIVE) Urine Nitrite (NEGATIVE) Urine Bilirubin (NEGATIVE) Urine Urobilinogen (0-1) mg/dL Urine Leukocytes (NEGATIVE) Urine WBC (Auto) (0-5) /HPF Urine RBC (Auto) (0-2) /HPF U Epithel Cells (Auto) (FEW) /HPF Urine Bacteria (Auto) (NEGATIVE) /HPF Urine RBC (0-5) Soham/ul Urine Mucus (Auto) (NEGATIVE) /HPF Ur Culture Indicated? Urine Sodium (30-90) mmol/L Urine Potassium mmol/L Urine Glucose (NEGATIVE) mg/dL Influenza Type A Ag (NEGATIVE) Influenza Type B Ag (NEGATIVE) RSV (PCR) (Negative) SARS-CoV-2 (PCR) (NEGATIVE) 09/10/21 09/10/21 09/10/21 Range/Units 20:38 21:21 21:34 WBC (4.0-10.5) K/mm3 RBC (4.1-5.4) M/mm3 Hgb (12.0-16.0) gm/dl Hct (35-47) % MCV (78-100) fl MCH (26-32) pg MCHC (32-36) g/dl RDW (11.5-14.0) % Plt Count (150-450) K/mm3 MPV (7.5-11.0) fl Gran % (36.0-66.0) % Eos # (Auto) (0-0.5) Absolute Lymphs (auto) (1.0-4.6) Absolute Monos (auto) (0.0-1.3) Lymphocytes % (24.0-44.0) % Monocytes % (0.0-12.0) % Eosinophils % (0.00-5.0) % Basophils % (0.0-0.4) % Absolute Granulocytes (1.4-6.9) Basophils # (0-0.4) Sodium (137-145) mmol/L Potassium (3.5-5.1) mmol/L Chloride (98-107) mmol/L Carbon Dioxide (22-30) mmol/L Anion Gap (5-15) MEQ/L BUN (7-17) mg/dL Creatinine (0.52-1.04) mg/dL Estimated GFR ML/MIN Glucose (74-106) mg/dL POC Glucometer (74 to 106) mg/dL Lactic Acid (0.4-2.0) Calcium (8.4-10.2) mg/dL Magnesium (1.6-2.3) mg/dL Total Bilirubin (0.2-1.3) mg/dL AST (14-36) U/L ALT (0-35) U/L Alkaline Phosphatase (38-126) U/L Troponin I (0.000-0.034) ng/mL NT-Pro-B Natriuret Pep (0-900) pg/mL Serum Total Protein (6.3-8.2) g/dL Albumin (3.5-5.0) g/dL Thyroxine (T4) 6.20 (5.53-10.96) ug/dL TSH 3rd Generation (0.47-4.68) mIU/L Urinalys Dipstick Clnc MAIN LAB Urine Color YELLOW (YELLOW) Urine Appearance CLEAR (CLEAR) Urine pH 6.0 (5-6) Ur Specific [place] 1.020 (1.005-1.025) POC Urine Protein Conf NEGATIVE (Negative) Urine Ketones NEGATIVE (NEGATIVE) Urine Nitrite NEGATIVE (NEGATIVE) Urine Bilirubin NEGATIVE (NEGATIVE) Urine Urobilinogen 0.2 (0-1) mg/dL Urine Leukocytes TRACE (NEGATIVE) Urine WBC (Auto) 3-5 (0-5) /HPF Urine RBC (Auto) NONE (0-2) /HPF U Epithel Cells (Auto) RARE (FEW) /HPF Urine Bacteria (Auto) NONE (NEGATIVE) /HPF Urine RBC NEGATIVE (0-5) Soham/ul Urine Mucus (Auto) MODERATE (NEGATIVE) /HPF Ur Culture Indicated? NO Urine Sodium 27 L (30-90) mmol/L Urine Potassium mmol/L Urine Glucose NEGATIVE (NEGATIVE) mg/dL Influenza Type A Ag (NEGATIVE) Influenza Type B Ag (NEGATIVE) RSV (PCR) (Negative) SARS-CoV-2 (PCR) (NEGATIVE) 09/10/21 09/10/21 09/10/21 Range/Units 21:34 22:03 23:00 WBC (4.0-10.5) K/mm3 RBC (4.1-5.4) M/mm3 Hgb (12.0-16.0) gm/dl Hct (35-47) % MCV (78-100) fl MCH (26-32) pg MCHC (32-36) g/dl RDW (11.5-14.0) % Plt Count (150-450) K/mm3 MPV (7.5-11.0) fl Gran % (36.0-66.0) % Eos # (Auto) (0-0.5) Absolute Lymphs (auto) (1.0-4.6) Absolute Monos (auto) (0.0-1.3) Lymphocytes % (24.0-44.0) % Monocytes % (0.0-12.0) % Eosinophils % (0.00-5.0) % Basophils % (0.0-0.4) % Absolute Granulocytes (1.4-6.9) Basophils # (0-0.4) Sodium (137-145) mmol/L Potassium (3.5-5.1) mmol/L Chloride (98-107) mmol/L Carbon Dioxide (22-30) mmol/L Anion Gap (5-15) MEQ/L BUN (7-17) mg/dL Creatinine (0.52-1.04) mg/dL Estimated GFR ML/MIN Glucose (74-106) mg/dL POC Glucometer (74 to 106) mg/dL Lactic Acid (0.4-2.0) Calcium (8.4-10.2) mg/dL Magnesium (1.6-2.3) mg/dL Total Bilirubin (0.2-1.3) mg/dL AST (14-36) U/L ALT (0-35) U/L Alkaline Phosphatase (38-126) U/L Troponin I < 0.012 (0.000-0.034) ng/mL NT-Pro-B Natriuret Pep (0-900) pg/mL Serum Total Protein (6.3-8.2) g/dL Albumin (3.5-5.0) g/dL Thyroxine (T4) (5.53-10.96) ug/dL TSH 3rd Generation (0.47-4.68) mIU/L Urinalys Dipstick Clnc Urine Color (YELLOW) Urine Appearance (CLEAR) Urine pH (5-6) Ur Specific [place] (1.005-1.025) POC Urine Protein Conf (Negative) Urine Ketones (NEGATIVE) Urine Nitrite (NEGATIVE) Urine Bilirubin (NEGATIVE) Urine Urobilinogen (0-1) mg/dL Urine Leukocytes (NEGATIVE) Urine WBC (Auto) (0-5) /HPF Urine RBC (Auto) (0-2) /HPF U Epithel Cells (Auto) (FEW) /HPF Urine Bacteria (Auto) (NEGATIVE) /HPF Urine RBC (0-5) Soham/ul Urine Mucus (Auto) (NEGATIVE) /HPF Ur Culture Indicated? Urine Sodium (30-90) mmol/L Urine Potassium 41.4 mmol/L Urine Glucose (NEGATIVE) mg/dL Influenza Type A Ag NEGATIVE (NEGATIVE) Influenza Type B Ag NEGATIVE (NEGATIVE) RSV (PCR) NEGATIVE (Negative) SARS-CoV-2 (PCR) NEGATIVE (NEGATIVE) 09/11/21 09/11/21 09/11/21 Range/Units 03:10 03:10 03:10 WBC 6.5 (4.0-10.5) K/mm3 RBC 3.47 L (4.1-5.4) M/mm3 Hgb 11.2 L (12.0-16.0) gm/dl Hct 32.1 L (35-47) % MCV 92.5 (78-100) fl MCH 32.3 H (26-32) pg MCHC 34.9 (32-36) g/dl RDW 11.5 (11.5-14.0) % Plt Count 220 (150-450) K/mm3 MPV 9.1 (7.5-11.0) fl Gran % 63.4 (36.0-66.0) % Eos # (Auto) 0.02 (0-0.5) Absolute Lymphs (auto) 1.70 (1.0-4.6) Absolute Monos (auto) 0.65 (0.0-1.3) Lymphocytes % 26.0 (24.0-44.0) % Monocytes % 10.0 (0.0-12.0) % Eosinophils % 0.3 (0.00-5.0) % Basophils % 0.3 (0.0-0.4) % Absolute Granulocytes 4.14 (1.4-6.9) Basophils # 0.02 (0-0.4) Sodium 122 L (137-145) mmol/L Potassium 4.3 D (3.5-5.1) mmol/L Chloride 92 L (98-107) mmol/L Carbon Dioxide 24 (22-30) mmol/L Anion Gap 10.0 (5-15) MEQ/L BUN 7 (7-17) mg/dL Creatinine 0.51 L (0.52-1.04) mg/dL Estimated GFR > 60.0 ML/MIN Glucose 116 H (74-106) mg/dL POC Glucometer (74 to 106) mg/dL Lactic Acid (0.4-2.0) Calcium 7.9 L (8.4-10.2) mg/dL Magnesium (1.6-2.3) mg/dL Total Bilirubin 1.10 (0.2-1.3) mg/dL AST 49 H (14-36) U/L ALT 51 H (0-35) U/L Alkaline Phosphatase 51 (38-126) U/L Troponin I < 0.012 (0.000-0.034) ng/mL NT-Pro-B Natriuret Pep (0-900) pg/mL Serum Total Protein 5.7 L (6.3-8.2) g/dL Albumin 3.6 (3.5-5.0) g/dL Thyroxine (T4) (5.53-10.96) ug/dL TSH 3rd Generation (0.47-4.68) mIU/L Urinalys Dipstick Clnc Urine Color (YELLOW) Urine Appearance (CLEAR) Urine pH (5-6) Ur Specific [place] (1.005-1.025) POC Urine Protein Conf (Negative) Urine Ketones (NEGATIVE) Urine Nitrite (NEGATIVE) Urine Bilirubin (NEGATIVE) Urine Urobilinogen (0-1) mg/dL Urine Leukocytes (NEGATIVE) Urine WBC (Auto) (0-5) /HPF Urine RBC (Auto) (0-2) /HPF U Epithel Cells (Auto) (FEW) /HPF Urine Bacteria (Auto) (NEGATIVE) /HPF Urine RBC (0-5) Soham/ul Urine Mucus (Auto) (NEGATIVE) /HPF Ur Culture Indicated? Urine Sodium (30-90) mmol/L Urine Potassium mmol/L Urine Glucose (NEGATIVE) mg/dL Influenza Type A Ag (NEGATIVE) Influenza Type B Ag (NEGATIVE) RSV (PCR) (Negative) SARS-CoV-2 (PCR) (NEGATIVE) 09/11/21 Range/Units 06:35 WBC (4.0-10.5) K/mm3 RBC (4.1-5.4) M/mm3 Hgb (12.0-16.0) gm/dl Hct (35-47) % MCV (78-100) fl MCH (26-32) pg MCHC (32-36) g/dl RDW (11.5-14.0) % Plt Count (150-450) K/mm3 MPV (7.5-11.0) fl Gran % (36.0-66.0) % Eos # (Auto) (0-0.5) Absolute Lymphs (auto) (1.0-4.6) Absolute Monos (auto) (0.0-1.3) Lymphocytes % (24.0-44.0) % Monocytes % (0.0-12.0) % Eosinophils % (0.00-5.0) % Basophils % (0.0-0.4) % Absolute Granulocytes (1.4-6.9) Basophils # (0-0.4) Sodium (137-145) mmol/L Potassium (3.5-5.1) mmol/L Chloride (98-107) mmol/L Carbon Dioxide (22-30) mmol/L Anion Gap (5-15) MEQ/L BUN (7-17) mg/dL Creatinine (0.52-1.04) mg/dL Estimated GFR ML/MIN Glucose (74-106) mg/dL POC Glucometer (74 to 106) mg/dL Lactic Acid (0.4-2.0) Calcium (8.4-10.2) mg/dL Magnesium (1.6-2.3) mg/dL Total Bilirubin (0.2-1.3) mg/dL AST (14-36) U/L ALT (0-35) U/L Alkaline Phosphatase (38-126) U/L Troponin I < 0.012 (0.000-0.034) ng/mL NT-Pro-B Natriuret Pep (0-900) pg/mL Serum Total Protein (6.3-8.2) g/dL Albumin (3.5-5.0) g/dL Thyroxine (T4) (5.53-10.96) ug/dL TSH 3rd Generation (0.47-4.68) mIU/L Urinalys Dipstick Clnc Urine Color (YELLOW) Urine Appearance (CLEAR) Urine pH (5-6) Ur Specific [place] (1.005-1.025) POC Urine Protein Conf (Negative) Urine Ketones (NEGATIVE) Urine Nitrite (NEGATIVE) Urine Bilirubin (NEGATIVE) Urine Urobilinogen (0-1) mg/dL Urine Leukocytes (NEGATIVE) Urine WBC (Auto) (0-5) /HPF Urine RBC (Auto) (0-2) /HPF U Epithel Cells (Auto) (FEW) /HPF Urine Bacteria (Auto) (NEGATIVE) /HPF Urine RBC (0-5) Soham/ul Urine Mucus (Auto) (NEGATIVE) /HPF Ur Culture Indicated? Urine Sodium (30-90) mmol/L Urine Potassium mmol/L Urine Glucose (NEGATIVE) mg/dL Influenza Type A Ag (NEGATIVE) Influenza Type B Ag (NEGATIVE) RSV (PCR) (Negative) SARS-CoV-2 (PCR) (NEGATIVE) - Radiology Impressions Radiology Exams & Impressions: Radiology Procedures Category Date Time Status HEAD WITHOUT CONTRAST [CT] Stat Exams 09/10/21 20:17 Completed Assessment/Plan (1) Hypokalemia Current Visit: Yes Status: Acute Assessment & Plan: K replaced, will continue isotonic fluids with potassium Code(s): E87.6 - HYPOKALEMIA (2) Hyponatremia Current Visit: Yes Status: Acute Assessment & Plan: low urine sodium, urine osmolality pending. suspect SIADH, patient is euvolemic and has no signs of volume overload on exam Code(s): E87.1 - HYPO-OSMOLALITY AND HYPONATREMIA (3) Weakness Current Visit: Yes Status: Acute Code(s): R53.1 - WEAKNESS
[2021-09-11] MEDS ORDERED: DICYCLOMINE HCL 10 MG PO PRN (09:33)
[2021-09-11] MEDS ORDERED: BENTYL 20 MG PO PRN (09:36)
[2021-09-11] MEDS ORDERED: XANAX 1 MG PO PRN (10:00)
[2021-09-11] MEDS: Sodium Chloride 0.9% W/ 20 mEq KCl/LITER 1,000 ML IV SCH ×2 (10:51→20:00)
[2021-09-11] MEDS: TYLENOL 325 MG PO PRN (21:45)
[2021-09-12 03:50] VITALS: O2SAT 97
[2021-09-12 05:27] LABS: BLOOD UREA NITROGEN 8 mg/dL (7-17); CHLORIDE 107 mmol/L (98-107); Calcium 8.4 mg/dL (8.4-10.2); Carbon Dioxide 27 mmol/L (22-30); EST GLOMERULAR FILTRATION RATE > 60.0 ML/MIN; Glucose 87 mg/dL (74-106); SODIUM 139 mmol/L (137-145)
[2021-09-12 05:37] LABS: Absolute Neutrophil Ct (ANC) 1.79 (1.4-6.9); Basophil (Absolute #) 0.01 (0-0.4); Eosinophil % 1.2 % (0.00-5.0); Eosinophil (Absolute #) 0.05 (0-0.5); Hematocrit 33.7 % (35-47); Hemoglobin 11.3 gm/dl (12.0-16.0); Lymphocytes % 41.5 % (24.0-44.0); Mean Cell Volume 97.1 fl (78-100); Mean Corpuscular Hemoglobin 32.6 pg (26-32); Mean Corpuscular Hgb Concent. 33.5 g/dl (32-36); Mean Platelet Volume 9.9 fl (7.5-11.0); Monocyte (Absolute #) 0.55 (0.0-1.3); Monocytes % 13.4 % (0.0-12.0); Neutrophil % 43.7 % (36.0-66.0); Platelet Count 204 K/mm3 (150-450); Red Blood Count 3.47 M/mm3 (4.1-5.4); Red Cell Distribution Width 12.1 % (11.5-14.0); White Blood Count 4.1 K/mm3 (4.0-10.5)
[2021-09-12] MEDS: TYLENOL 325 MG PO PRN (06:56)
[2021-09-12 07:45] VITALS: BP 123/57; PULSE 82
--- NOTE | 2021-09-12 08:28 | PCM.DS ---
Discharge Summary Date of Admission: 09/10/21 23:51 Admitting Physician: ERIKA KONG DO Consults: Consults on Case 09/11/21 09:08 Consult Nephrology ROUTINE Primary Care Provider: ANOOP MORRIS Allergies Allergies Penicillins Allergy (Severe, Verified 09/10/21 20:23) morphine Allergy (Verified 09/10/21 20:23) potassium sorbate Allergy (Verified 09/10/21 20:23) sulfamethoxazole [From Bactrim] Allergy (Verified 09/10/21 20:23) trimethoprim [From Bactrim] Allergy (Verified 09/10/21 20:23) Hospital Summary - Hospital Course Hospital Course: patient was admitted with weakness and mild confusion, had low potassium and sodium on arrival. improved with isotonic fluids and K replacement, no diuretics. urine osmolality pending but labs are normal and she has no complaints today - Vitals & Intake/Output Vital Signs: Vital Signs Temperature 97.9 F 09/12/21 07:44 Pulse Rate 82 09/12/21 07:44 Respiratory Rate 16 09/12/21 07:44 Blood Pressure 123/57 09/12/21 07:44 O2 Sat by Pulse Oximetry 97 09/12/21 07:44 Intake & Output: Intake & Output 09/09/21 09/10/21 09/11/21 09/12/21 11:59 11:59 11:59 11:59 Intake Total 636 600 Output Total 3500 3000 Balance -2864 -2400 Weight 71.8 kg 71.7 kg - Lab Result Diagrams: 09/12/21 04:25 09/12/21 04:25 Lab Results-Last 24 Hrs: Lab Results-Last 24 Hours 09/11/21 09/11/21 09/12/21 Range/Units 09:20 10:00 04:25 WBC (4.0-10.5) K/mm3 RBC (4.1-5.4) M/mm3 Hgb (12.0-16.0) gm/dl Hct (35-47) % MCV (78-100) fl MCH (26-32) pg MCHC (32-36) g/dl RDW (11.5-14.0) % Plt Count (150-450) K/mm3 MPV (7.5-11.0) fl Gran % (36.0-66.0) % Eos # (Auto) (0-0.5) Absolute Lymphs (auto) (1.0-4.6) Absolute Monos (auto) (0.0-1.3) Lymphocytes % (24.0-44.0) % Monocytes % (0.0-12.0) % Eosinophils % (0.00-5.0) % Basophils % (0.0-0.4) % Absolute Granulocytes (1.4-6.9) Basophils # (0-0.4) Sodium (137-145) mmol/L Potassium (3.5-5.1) mmol/L Chloride (98-107) mmol/L Carbon Dioxide (22-30) mmol/L Anion Gap (5-15) MEQ/L BUN (7-17) mg/dL Creatinine (0.52-1.04) mg/dL Estimated GFR ML/MIN Glucose (74-106) mg/dL Calcium (8.4-10.2) mg/dL Magnesium 2.1 (1.6-2.3) mg/dL Troponin I < 0.012 (0.000-0.034) ng/mL Urine Sodium 9 L (30-90) mmol/L 09/12/21 09/12/21 Range/Units 04:25 04:25 WBC 4.1 (4.0-10.5) K/mm3 RBC 3.47 L (4.1-5.4) M/mm3 Hgb 11.3 L (12.0-16.0) gm/dl Hct 33.7 L (35-47) % MCV 97.1 (78-100) fl MCH 32.6 H (26-32) pg MCHC 33.5 (32-36) g/dl RDW 12.1 (11.5-14.0) % Plt Count 204 (150-450) K/mm3 MPV 9.9 (7.5-11.0) fl Gran % 43.7 (36.0-66.0) % Eos # (Auto) 0.05 (0-0.5) Absolute Lymphs (auto) 1.70 (1.0-4.6) Absolute Monos (auto) 0.55 (0.0-1.3) Lymphocytes % 41.5 (24.0-44.0) % Monocytes % 13.4 H (0.0-12.0) % Eosinophils % 1.2 (0.00-5.0) % Basophils % 0.2 (0.0-0.4) % Absolute Granulocytes 1.79 (1.4-6.9) Basophils # 0.01 (0-0.4) Sodium 139 D (137-145) mmol/L Potassium 4.0 (3.5-5.1) mmol/L Chloride 107 D (98-107) mmol/L Carbon Dioxide 27 (22-30) mmol/L Anion Gap 9.0 (5-15) MEQ/L BUN 8 (7-17) mg/dL Creatinine 0.60 (0.52-1.04) mg/dL Estimated GFR > 60.0 ML/MIN Glucose 87 (74-106) mg/dL Calcium 8.4 (8.4-10.2) mg/dL Magnesium (1.6-2.3) mg/dL Troponin I (0.000-0.034) ng/mL Urine Sodium (30-90) mmol/L - Radiology Exams Ordered Rad Exams-Entire Visit: Radiology Procedures Category Date Time Status HEAD WITHOUT CONTRAST [CT] Stat Exams 09/10/21 20:17 Completed Discharge Exam General Appearance: no apparent distress, alert Respiratory Exam: normal breath sounds, lungs clear, No respiratory distress Cardiovascular Exam: regular rate/rhythm, normal heart sounds Gastrointestinal/Abdomen Exam: soft, No tenderness, No mass Extremity Exam: normal inspection, normal range of motion Skin Exam: normal color, warm, dry Final Diagnosis/Problem List - Final Discharge Diagnosis/Problem (1) Hypokalemia Current Visit: Yes Status: Acute Code(s): E87.6 - HYPOKALEMIA (2) Hyponatremia Current Visit: Yes Status: Acute Code(s): E87.1 - HYPO-OSMOLALITY AND HYPONATREMIA (3) Weakness Current Visit: Yes Status: Acute Code(s): R53.1 - WEAKNESS - Discharge Disposition: Home, Self-Care Condition: Stable Prescriptions: Continue Dicyclomine HCl [Bentyl] 10 mg PO TID Diphenhydramine HCl 25 mg [Benadryl 25 mg Capsule] 25 mg PO Q4H PRN PRN #20 cap PRN Reason: Allergies EPINEPHrine [Epipen 2-Ga] 0.3 mg IM DIRECTIONS UNKNOWN 1 Days #0.3 ml Famotidine 20 mg [Pepcid 20 MG] 20 mg PO BID #14 tablet ALPRAZolam 1 MG [Xanax 1 mg] 1 mg PO TIDPRN Propranolol HCl [Inderal Xl] 80 mg PO DAILY Follow up with: TRUE MCKINNEY [CONSULTING PHYSICIAN] - ERIKA KONG DO [ACTIVE STAFF] - 1 Week
== END 2021-09-12 09:00 | disposition home or self-care (01) | DRG 641 ==
LOC: ED 20:04 → MED SURG 23:51
PROVIDERS: ADMIT Family Medicine; ATTEND Family Medicine
DX: E87.6 Hypokalemia (principal); E87.1 Hypo-osmolality and hyponatremia; R53.1 Weakness; Z79.899 Other long term (current) drug therapy; Z20.828 Contact with and (suspected) exposure to other viral communicable diseases
CPT/HCPCS: 0241U; 36000; 36415; 70450; 80048; 80053; 81015; 82947; 83605; 83735; 83880; 83935; 84133; 84300; 84436; 84443; 84484; 85025; 93005; 94760; 96360; 99285; Q0162; A9270-GY

== ENCOUNTER 2022-04-24 20:25 | Emergency (ER) | payer BC ==
[2022-04-24 20:56] LABS: Absolute Neutrophil Ct (ANC) 2.41 x10^3/uL (1.4-6.9); Basophil (Absolute #) 0.03 x10^3/uL (0-0.4); Eosinophil % 0.7 % (0.00-5.0); Eosinophil (Absolute #) 0.04 x10^3/uL (0-0.5); Hematocrit 37.9 % (35-47); Hemoglobin 12.8 g/dL (12.0-16.0); Lymphocytes % 45.3 % (24.0-44.0); Mean Cell Volume 92.4 fL (78-100); Mean Corpuscular Hemoglobin 31.2 pg (26-32); Mean Corpuscular Hgb Concent. 33.8 g/dL (32-36); Mean Platelet Volume 9.6 fL (7.5-11.0); Monocyte (Absolute #) 0.64 x10^3/uL (0.0-1.3); Monocytes % 11.1 % (0.0-12.0); Neutrophil % 42.1 % (36.0-66.0); Platelet Count 239 x10^3/uL (150-450); Red Cell Distribution Width 11.3 % (11.5-14.0); White Blood Count 5.7 x10^3/uL (4.0-10.5)
[2022-04-24 21:16] LABS: ALBUMIN 4.3 g/dL (3.5-5.0); ALKALINE PHOSPHATASE 64 U/L (38-126); ANION GAP 10.3 MEQ/L (5-15); BLOOD UREA NITROGEN 13 mg/dL (7-17); CHLORIDE 102 mmol/L (98-107); Calcium 8.6 mg/dL (8.4-10.2); Carbon Dioxide 26 mmol/L (22-30); Creatinine 1 0.74 mg/dL (0.52-1.04); EST GLOMERULAR FILTRATION RATE > 60.0 ML/MIN; Glucose 116 mg/dL (74-106); NT PRO BNP 36.4 pg/mL (0-900); Potassium 4.1 mmol/L (3.5-5.1); SGOT/AST 24 U/L (14-36); SGPT/ALT 25 U/L (0-35); SODIUM 134 mmol/L (137-145); Total Protein 6.8 g/dL (6.3-8.2)
[2022-04-24] MEDS ORDERED: BABY ASPIRIN 81 MG CHEW PO ONE (23:58)
--- NOTE | 2022-04-24 23:59 | ERPHSYRPT ---
- History of Present Illness Time Seen by Provider: 04/24/22 23:55 Historian: patient Exam Limitations: no limitations Patient Subjective Stated Complaint: pt states "I have had this chest pressure all afternoon. It was relieved with 1 nitro." Triage Nursing Assessment: pt came into the er via wheelchair; pt is axo x4 c/o chest pressure; pt denies pain; clear apical pulse; strong phoenix radial pulses; clear lung sounds; no edema present; skin PDW; vitals wnl Physician History: Please 56-year-old female presents to emergency department for evaluation of epigastric lower chest pressure. Patient states symptoms started this afternoon. Symptoms have been constant. Patient took a nitroglycerin which helped her pain. Patient feels well at this time. No associated nausea vomiting or diaphoresis. No fever. No trauma. 1 present symptoms are mild to moderate in intensity. No specific worsening improving factors. Patient denies any other cardiac risk factors. She voices no other complaints or concerns at this time. Portions of this note were created with voice recognition technology. There may be grammatical, spelling, punctuation or sound alike errors Timing/Duration: today Activities at Onset: none Quality: aching Location: substernal (Low substernal epigastric pain) Chest Pain Radiation: no radiation Severity of Pain-Max: moderate Severity of Pain-Current: mild Modifying Factors: Improves With: nitroglycerin Associated Symptoms: denies symptoms Prior Chest Pain/Cardiac Workup: no prior chest pain Nitro Today/Relief: 0.4 mg x 1 Aspirin Treatment Today: no aspirin today Allergies/Adverse Reactions: Penicillins Allergy (Severe, Verified 04/24/22 20:27) morphine Allergy (Verified 04/24/22 20:27) sulfamethoxazole [From Bactrim] Allergy (Verified 04/24/22 20:27) trimethoprim [From Bactrim] Allergy (Verified 04/24/22 20:27) Home Medications: Dicyclomine HCl [Bentyl] 10 mg PO TID 10/03/16 [History] ALPRAZolam 1 MG [Xanax 1 mg] 1 mg PO TIDPRN 09/10/21 [History] Aspirin EC 81 mg [Ecotrin 81 mg] 81 mg PO DAILY 04/24/22 [History] Nitroglycerin 0.4 mg Tablet [Nitrostat 0.4 MG Tablet] 0.4 mg SL UD 04/24/22 [History] Pravastatin Sodium 20 mg PO DAILY 04/24/22 [History] Ranolazine [Ranolazine ER] 1,000 mg PO BID 04/24/22 [History] Hx Tetanus, Diphtheria Vaccination/Date Given: No Hx Influenza Vaccination/Date Given: No Hx Pneumococcal Vaccination/Date Given: No Travel Risk - International Travel Have you traveled outside of the country in past 3 weeks: No - Coronavirus Screening Are you exhibiting any of the following symptoms?: No Close contact with a COVID-19 positive Pt in past 14-21 Days: No - Vaccine Status Have you recieved a Covid-19 vaccination: No - Review of Systems Constitutional: No Symptoms, No Fever, No Chills Eyes: No Symptoms Ears, Nose, & Throat: No Symptoms Respiratory: No Symptoms, No Cough, No Dyspnea Cardiac: No Symptoms, No Chest Pain, No Edema, No Syncope Abdominal/Gastrointestinal: No Symptoms, No Abdominal Pain, No Nausea, No Vomiting, No Diarrhea Genitourinary Symptoms: No Symptoms, No Dysuria Musculoskeletal: No Symptoms, No Back Pain, No Neck Pain Skin: No Symptoms, No Rash Neurological: No Symptoms, No Dizziness, No Focal Weakness, No Sensory Changes Psychological: No Symptoms Endocrine: No Symptoms Hematologic/Lymphatic: No Symptoms Immunological/Allergic: No Symptoms All Other Systems: Reviewed and Negative - Past Medical History Pertinent Past Medical History: Yes Neurological History: Migraines ENT History: No Pertinent History Cardiac History: Angina, Other Respiratory History: No Pertinent History Endocrine Medical History: No Pertinent History Musculoskeletal History: Arthritis GI Medical History: No Pertinent History History: Other Psycho-Social History: Anxiety Female Reproductive Disorders: No Pertinent History Other Medical History: RAPID HEART BEAT, "kidneys filter too much potassium". nodule on thyroid; small blockage in bottom of heart - Past Surgical History Past Surgical History: Yes Neuro Surgical History: No Pertinent History Cardiac: No Pertinent History Respiratory: No Pertinent History Gastrointestinal: No Pertinent History Genitourinary: No Pertinent History Musculoskeletal: No Pertinent History Female Surgical History: Hysterectomy - Social History Smoking Status: Never smoker Exposure to second hand smoke: No Drug Use: none Patient Lives Alone: No - Nursing Vital Signs Nursing Vital Signs: Initial Vital Signs Temperature 97.7 F 04/24/22 20:29 Pulse Rate 76 04/24/22 20:29 Respiratory Rate 12 04/24/22 20:29 Blood Pressure 131/84 04/24/22 20:29 O2 Sat by Pulse Oximetry 100 04/24/22 20:29 Pain Scale Pain Intensity 0 - Physical Exam General Appearance: no apparent distress, alert Eye Exam: PERRL/EOMI, eyes nml inspection Ears, Nose, Throat Exam: normal ENT inspection, moist mucous membranes Neck Exam: normal inspection, non-tender, supple, full range of motion Respiratory Exam: normal breath sounds, lungs clear, airway intact, No respiratory distress Cardiovascular Exam: regular rate/rhythm, normal heart sounds, normal peripheral pulses Gastrointestinal/Abdomen Exam: soft, normal bowel sounds, No tenderness, No mass Back Exam: normal inspection, No CVA tenderness, No vertebral tenderness Extremity Exam: normal inspection, normal range of motion Neurologic Exam: alert, oriented x 3, cooperative, normal mood/affect, sensation nml, No motor deficits Skin Exam: normal color, warm, dry Lymphatic Exam: No adenopathy SpO2 Interpretation: normal SpO2: 96 O2 Delivery: Room Air - Course Nursing assessment & vital signs reviewed: Yes EKG Interpreted by Me: RATE (72), Sinus Rhythm, NORMAL AXIS, NORMAL INTERVALS - Radiology Exams Chest X-ray Interpretation: Interpreted by me (Hyperinflated lungs. Normal cardiac silhouette. Intact bony thorax) Ordered Tests: Active Orders 24 hr Category Date Time Status Musical Instrument Supervisor STAT Care 04/24/22 20:40 Active EKG-ER Only STAT Care 04/24/22 20:39 Active IV Insertion STAT Care 04/24/22 20:39 Active Pulse Oximetry (ED) STAT Care 04/24/22 20:39 Active CHEST 1 VIEW (PORTABLE) Stat Exams 04/24/22 20:40 Taken CBC W DIFF Stat Lab 04/24/22 20:43 Completed CMP Stat Lab 04/24/22 20:43 Completed NT PRO BNP Stat Lab 04/24/22 20:43 Completed TROPONIN Q4H Lab 04/24/22 20:43 Completed TROPONIN Q4H Lab 04/25/22 00:21 Completed TROPONIN Q4H Lab 04/25/22 04:45 Ordered Medication Summary Discontinued Medications Generic Name Dose Route Start Last Admin Trade Name Freq PRN Reason Stop Dose Admin Aspirin 243 mg 04/24/22 23:58 04/25/22 00:18 Aspirin 81 Mg Tab.Chew PO 04/24/22 23:59 243 mg STAT ONE Administration Lab/Rad Data: Laboratory Result Diagrams 04/24/22 20:43 04/24/22 20:43 Laboratory Results 04/25/22 04/24/22 04/24/22 Range/Units 00:21 20:43 20:43 WBC (4.0-10.5) x10^3/uL RBC (4.1-5.4) x10^6/uL Hgb (12.0-16.0) g/dL Hct (35-47) % MCV (78-100) fL MCH (26-32) pg MCHC (32-36) g/dL RDW (11.5-14.0) % Plt Count (150-450) x10^3/uL MPV (7.5-11.0) fL Gran % (36.0-66.0) % Immature Gran % (Auto) (0.00-0.4) % Nucleat RBC Rel Count (0.00-0.1) % Eos # (Auto) (0-0.5) x10^3/uL Immature Gran # (Auto) (0.00-0.03) x10^3u/L Absolute Lymphs (auto) (1.0-4.6) x10^3/uL Absolute Monos (auto) (0.0-1.3) x10^3/uL Absolute Nucleated RBC (0.00-0.01) x10^3u/L Lymphocytes % (24.0-44.0) % Monocytes % (0.0-12.0) % Eosinophils % (0.00-5.0) % Basophils % (0.0-0.4) % Absolute Granulocytes (1.4-6.9) x10^3/uL Basophils # (0-0.4) x10^3/uL Sodium 134 L (137-145) mmol/L Potassium 4.1 (3.5-5.1) mmol/L Chloride 102 (98-107) mmol/L Carbon Dioxide 26 (22-30) mmol/L Anion Gap 10.3 (5-15) MEQ/L BUN 13 (7-17) mg/dL Creatinine 0.74 (0.52-1.04) mg/dL Estimated GFR > 60.0 ML/MIN Glucose 116 H (74-106) mg/dL Calcium 8.6 (8.4-10.2) mg/dL Total Bilirubin 0.40 (0.2-1.3) mg/dL AST 24 (14-36) U/L ALT 25 (0-35) U/L Alkaline Phosphatase 64 (38-126) U/L Troponin I < 0.012 < 0.012 (0.000-0.034) ng/mL NT-Pro-B Natriuret Pep 36.4 (0-900) pg/mL Serum Total Protein 6.8 (6.3-8.2) g/dL Albumin 4.3 (3.5-5.0) g/dL 04/24/22 Range/Units 20:43 WBC 5.7 (4.0-10.5) x10^3/uL RBC 4.10 (4.1-5.4) x10^6/uL Hgb 12.8 (12.0-16.0) g/dL Hct 37.9 (35-47) % MCV 92.4 (78-100) fL MCH 31.2 (26-32) pg MCHC 33.8 (32-36) g/dL RDW 11.3 L (11.5-14.0) % Plt Count 239 (150-450) x10^3/uL MPV 9.6 (7.5-11.0) fL Gran % 42.1 (36.0-66.0) % Immature Gran % (Auto) 0.3 (0.00-0.4) % Nucleat RBC Rel Count 0.0 (0.00-0.1) % Eos # (Auto) 0.04 (0-0.5) x10^3/uL Immature Gran # (Auto) 0.02 (0.00-0.03) x10^3u/L Absolute Lymphs (auto) 2.60 (1.0-4.6) x10^3/uL Absolute Monos (auto) 0.64 (0.0-1.3) x10^3/uL Absolute Nucleated RBC 0.00 (0.00-0.01) x10^3u/L Lymphocytes % 45.3 H (24.0-44.0) % Monocytes % 11.1 (0.0-12.0) % Eosinophils % 0.7 (0.00-5.0) % Basophils % 0.5 (0.0-0.4) % Absolute Granulocytes 2.41 (1.4-6.9) x10^3/uL Basophils # 0.03 (0-0.4) x10^3/uL Sodium (137-145) mmol/L Potassium (3.5-5.1) mmol/L Chloride (98-107) mmol/L Carbon Dioxide (22-30) mmol/L Anion Gap (5-15) MEQ/L BUN (7-17) mg/dL Creatinine (0.52-1.04) mg/dL Estimated GFR ML/MIN Glucose (74-106) mg/dL Calcium (8.4-10.2) mg/dL Total Bilirubin (0.2-1.3) mg/dL AST (14-36) U/L ALT (0-35) U/L Alkaline Phosphatase (38-126) U/L Troponin I (0.000-0.034) ng/mL NT-Pro-B Natriuret Pep (0-900) pg/mL Serum Total Protein (6.3-8.2) g/dL Albumin (3.5-5.0) g/dL - Progress Progress: improved Air Movement: good Progress Note: Patient reassessed. She is resting comfortably. Patient has no chest pain. Troponin negative x2. EKG normal sinus rhythm. Chest x-ray negative. Heart score is 2 which places her at a risk of major adverse coronary event of 0.9 to 1.7%. Patient states she prefers to go home. She agrees to follow-up with her primary care doctor within 48 hours for evaluation. Portions of this note were created with voice recognition technology. There may be grammatical, spelling, punctuation or sound alike errors 04/25/22 01:07 Blood Culture(s) Obtained: No Antibiotics given: No Counseled pt/family regarding: lab results, diagnosis, need for follow-up, rad results - Departure Departure Disposition: Home Clinical Impression: Chest pain Condition: Stable Critical Care Time: No Referrals: ANOOP MORRIS NP [Primary Care Provider] - Follow up/PCP as directed Additional Instructions: Discharge/Care Plan SHARONDA BRUNNER was seen on 04/25/22 in the Emergency Room. The patient was counseled regarding Diagnosis,Lab results, Imaging studies, need for follow up and when to return to the Emergency Room. Prescriptions given: Discharge Note I have spoken with the patient and/or caregivers. I have explained the patient's condition, diagnosis and treatment plan based on the information available to me at this time. I have answered the patient's and/or caregiver's questions and addressed any concerns. The patient and/or caregivers have as good understanding of the patient's diagnosis, condition and treatment plan as can be expected at this point. The vital signs have been stable. The patient's condition is stable and appropriate for discharge from the emergency department. The patient will pursue further outpatient evaluation with the primary care physician or other designated or consulting physician as outlined in the disc harge instructions. The patient and/or caregivers are agreeable to this plan of care and follow-up instructions have been explained in detail. The patient and/or caregivers have received these instruction. The patient/and or caregivers are aware that any significant change in condition or worsening of symptoms should prompt an immediate return to this or the closest emergency department or call 911.
[2022-04-25 01:40] VITALS: BP 137/78; PULSE 76; O2SAT 99
--- NOTE | 2022-04-25 08:57 | XRAY ---
Indication: Chest pain. Comparison: May 10, 2021 Portable chest again demonstrates normal heart and lungs. Bony thorax intact again with mild osteopenia and degenerative changes. No new/acute findings.
== END 2022-04-25 01:25 | disposition home or self-care (01) ==
LOC: ED 20:25
DX: R07.9 Chest pain, unspecified (principal); R10.13 Epigastric pain; Z79.899 Other long term (current) drug therapy; Z28.310 Unvaccinated for COVID-19
CPT/HCPCS: 36000; 36415; 71045; 80053; 83880; 84484; 85025; 93005; 93041; 94760; 99284; A9270-GY